=== PATIENT | male | born 1945 | race Caucasian/White ===

== ENCOUNTER 2019-09-13 16:31 | Emergency (ER) | payer OTHER ==
[~2019-09-13] VITALS: Ht 177.8 cm; Wt 68.0 kg
[~2019-09-13 16:31] MED LIST: LEVAQUIN500 M1 PO
[2019-09-13 16:35] VITALS: Ht 177.8 cm; Wt 68.0 kg
[2019-09-13 17:35] LABS: BASOPHIL % 0.5 % (0-2); PLATELET COUNT 237 x10^3mcL (130-400)
[2019-09-13 17:38] LABS: RED CELL DISTRIBUTION WIDTH 14.7 % (11.5-14.5)
[2019-09-13 17:50] LABS: CALCIUM 8.4 mg/dL (8.5-10.1); CARBON DIOXIDE 26.7 mmol/L (21-32); CHLORIDE SERUM 107 mmol/L (98-107); CREATININE SERUM 0.8 mg/dL (0.7-1.3); GLUCOSE SERUM 93 mg/dL (74-106); POTASSIUM SERUM 3.1 mmol/L (3.5-5.1); SODIUM SERUM 142 mmol/L (136-145)
[2019-09-13 17:55] LABS: ALKALINE PHOSPHATASE 63 U/L (46-116); ALT/SGPT 23 U/L (16-63); AST/SGOT 14 U/L (15-37); BILIRUBIN TOTAL 0.3 mg/dL (0.20-1.00); TOTAL PROTEIN, SERUM 6.4 g/dL (6.4-8.2)
[2019-09-13 17:57] LABS: ALBUMIN 3.2 g/dL (3.4-5.0)
[2019-09-13 18:33] LABS: microscopic required? YES; urine erythrocyte 2+ (NEGATIVE)
[2019-09-13 19:00] LABS: AMPHETAMINE QUAL UR NONE DETECTED (See below)
[2019-09-13 19:51] VITALS: BP 132/73
== END 2019-09-13 19:51 | disposition home or self-care (01) ==
LOC: ED 16:31
PROVIDERS: Emergency Medicine
DX: E87.6 Hypokalemia (principal); B59 Pneumocystosis; R53.1 Weakness; M19.90 Unspecified osteoarthritis, unspecified site; Z88.0 Allergy status to penicillin
CPT/HCPCS: J1885; J7030; Q0092